=== PATIENT | female | born 1940 | race Caucasian/White ===

== ENCOUNTER → 2025-04-13 14:07 | Outpatient (REF) | payer MEDICARE, SELFPAY | LOC: RAD 14:07 | PROVIDERS: ATTENDING PHYSICIAN Orthopaedic Surgery Hand Surgery; FAMILY PHYSICIAN Family Medicine | DX: M19.011 Primary osteoarthritis, right shoulder (principal) | CPT/HCPCS: 73200 ==

== ENCOUNTER 2025-04-24 06:14 | Day surgery (SDC) | payer MEDICARE, SELFPAY ==
--- NOTE | 2025-04-09 15:54 | CM ---
Demographics: confirmed
Living situation: lives independently with in [facility]
Support Person Post Operatively:
History of
VN: no
SNF: no
Outpatient: PT at [facility] once the patient is cleared
Has patient purchased required equipment: No
PCP: Gerry
Pharmacy: [facility]
Post Operative Discharge Plan: Home with family, PT when surgically cleared.
[2025-04-13 13:53] LABS: Hematocrit 41.1 % (37.0-47.0); Hemoglobin 12.8 g/dL (12.0-16.0); Mean Corp Hgb Conc. 31.1 g/dL (33.0-37.0); Mean Corpuscular Volume 90.5 fL (81.0-99.0); Platelet Count 278 10^3/uL (130-400); Red Cell Dist. Width 14.0 % (11.5-14.5)
[2025-04-13 14:31] LABS: ALT (SGPT) 17 U/L (0-35); AST (SGOT) 22 U/L (14-36); Albumin 3.9 g/dl (3.5-5.0); Alkaline Phosphatase 98 U/L (38-126); Blood Urea Nitrogen 15 mg/dl (7-17); Calcium 8.3 mg/dl (8.4-10.2); Carbon Dioxide 27 mmol/L (22-30); Chloride 105 mmol/L (98-107); Glucose 111 mg/dl (70-99); Potassium 3.6 mmol/L (3.5-5.1); Sodium 138 mmol/L (135-145); Total Protein 6.3 g/dl (6.3-8.2); eGFR > 60.00
[2025-04-13 14:57] LABS: Glycohemoglobin (HgbA1c) 5.6 % (4.0-5.6)
[2025-04-16 13:39] VITALS: BMI 28.9
[2025-04-23 11:42] VITALS: BMI 28.9
[2025-04-24] VITALS (11 sets, daily range): BP systolic 121–157; BP diastolic 56–95
[2025-04-24] MEDS: CELEBREX 200 MG PO (09:01)
[2025-04-24] MEDS: TYLENOL 1000 MG PO (09:01)
[2025-04-24] MEDS: NORMOSOL-R/PLASMALYTE-A 1000 IV (09:02)
[2025-04-24] MEDS: ZOFRAN 4 MG IV (13:08)
[2025-04-24] MEDS: ANCEF 5 IV (15:14)
== END 2025-04-24 15:37 | disposition home or self-care (01) ==
LOC: SDS 06:14
PROVIDERS: ATTENDING PHYSICIAN Orthopaedic Surgery Hand Surgery; FAMILY PHYSICIAN Family Medicine; OTHER PHYSICIAN Physician Assistant Medical; REFERRING PHYSICIAN Internal Medicine Cardiovascular Disease
DX: M19.011 Primary osteoarthritis, right shoulder (principal)
CPT/HCPCS: 23472; C1776; C1713; 36415; 73020; 80053; 83036; 85027; 87070; 93005